=== PATIENT | male | born 1995 | race Two or more races ===

== ENCOUNTER 2016-07-17 17:20 | Emergency (ER) | payer MEDICAID ==
[~2016-07-17] VITALS: Ht 185.4 cm; Wt 90.7 kg
[2016-07-17 17:35] VITALS: BP 138/80
== END 2016-07-17 19:41 | disposition home or self-care (01) ==
LOC: EDBD 17:20 → ER 17:20
DX: S01.81XD Laceration without foreign body of other part of head, subsequent encounter (principal); Z48.02 Encounter for removal of sutures; Z76.0 Encounter for issue of repeat prescription